=== PATIENT | female | born 1975 | race Caucasian/White ===

== ENCOUNTER 2020-12-29 14:57 | Emergency (ER) | payer MEDICAID ==
[2020-12-29] MEDS ORDERED: Sodium Chloride 0.9% 1,000 ML IV ONE (15:18)
[2020-12-29] MEDS ORDERED: Sodium Chloride 0.9% 10 ML Syringe FLUSH PRN (15:18)
[2020-12-29] MEDS ORDERED: Phenazopyridine 95 MG Tab PO ONE (15:19)
--- NOTE | 2020-12-29 15:22 | EDM.PDOC ---
ED HPI GENERAL MEDICAL PROBLEM - General Chief Complaint: Genitourinary Problem Stated Complaint: UNABLE TO URINATE Time Seen by Provider: 12/29/20 15:05 Source of Information: Reports: Patient, RN Notes Reviewed History Limitations: Reports: No Limitations - History of Present Illness INITIAL COMMENTS - FREE TEXT/NARRATIVE: Patient is a 45-year-old female who presents to the ER for the evaluation of a possible UTI. Patient notes she gets UTIs fairly frequently, the last one was roughly 2 months ago. She states she is having dysuria, and only dribbles a little bit when she has to go to the bathroom. Patient notes that she woke up early this morning, and that the road dorsal morning, she thinks she could be somewhat dehydrated as well however she was drinking Pedialyte all day in order to counteract the effects of being outside in the heat. She does feel a bit dizzy or lightheaded, feels like her mouth is dry. She is denying any fevers or chills, cough or shortness of breath, nausea/vomiting/diarrhea. Patient states it hurts quite a bit to urinate, so she became concerned and came to the ER. Groin Pain Score (Numeric/FACES): 8 - Related Data Allergies Allergy/AdvReac Type Severity Reaction Status Date / Time amoxicillin Allergy Severe Anaphylactic Verified 12/29/20 15:08 Shock Home Meds: Home Meds Cefdinir [Omnicef] 300 mg PO BID 7 Days #14 cap 12/29/20 [Rx] Dextroamphetamine/Amphetamine [Adderall 20 mg Tablet] 1 tab PO TID 12/29/20 [History] LORazepam [Ativan] 0.5 mg PO BID PRN 12/29/20 [History] Past Medical History Genitourinary History: Reports: UTI, Recurrent Psychiatric History: Reports: ADHD, Anxiety - Past Surgical History GI Surgical History: Reports: Appendectomy Female Surgical History: Reports: Hysterectomy Musculoskeletal Surgical History: Reports: Carpal Tunnel, Other (See Below) Other Musculoskeletal Surgeries/Procedures:: Foot Surgery Social & Family History - Tobacco Use Tobacco Use Status *Q: Never Tobacco User - Caffeine Use Caffeine Use: Reports: Soda - Recreational Drug Use Recreational Drug Use: No ED ROS GENERAL - Review of Systems Review Of Systems: Comprehensive ROS is negative, except as noted in HPI. ED EXAM, RENAL/ - Physical Exam Exam: See Below Exam Limited By: No Limitations General Appearance: Alert, WD/WN, No Apparent Distress Respiratory/Chest: No Respiratory Distress, Lungs Clear, Normal Breath Sounds, No Accessory Muscle Use, Chest Non-Tender Cardiovascular: Normal Peripheral Pulses, Regular Rate, Rhythm, No Edema GI/Abdominal: Normal Bowel Sounds, Soft, No Distention, No Mass, Tender (suprapubic tenderness) (Female) Exam: Deferred Extremities: Normal Inspection, Normal Capillary Refill Neurological: Alert, Oriented, Normal Cognition, No Motor/Sensory Deficits Psychiatric: Normal Affect, Normal Mood Skin Exam: Warm, Dry, Intact, Normal Color, No Rash Course - Vital Signs Last Recorded V/S: Last Vital Signs Temp 97.4 F 12/29/20 15:05 Pulse 87 12/29/20 15:05 Resp 16 12/29/20 15:05 BP 127/74 12/29/20 15:05 Pulse Ox 97 12/29/20 15:05 - Orders/Labs/Meds Orders: Active Orders 24 hr Category Date Time Status Peripheral IV Care [RC] . DIRECTED Care 12/29/20 15:18 Ordered Sodium Chloride 0.9% [Saline Flush] Med 12/29/20 15:18 Ordered 10 ml FLUSH ASDIRECTED PRN cefTRIAXone [Rocephin] 2 gm Med 12/29/20 15:54 Ordered Sodium Chloride 0.9% [Normal Saline] 100 ml IV ONETIME Peripheral IV Insertion Adult [OM.PC] Routine Oth 12/29/20 15:18 Ordered Medication Orders Ceftriaxone Sodium 2 gm/ (Sodium Chloride) 100 mls @ 200 mls/hr IV ONETIME ONE Stop: 12/29/20 16:23 Last Admin: 12/29/20 16:02 Dose: 200 mls/hr Documented by: KWAN Sodium Chloride (Sodium Chloride 0.9% 10 Ml Syringe) 10 ml FLUSH ASDIRECTED PRN PRN Reason: Keep Vein Open Last Admin: 12/29/20 15:33 Dose: 10 ml Documented by: WENDY Labs: Laboratory Tests 12/29/20 12/29/20 Range/Units 15:30 15:34 Sodium 139 (136-145) mEq/L Potassium 3.3 L (3.5-5.1) mEq/L Chloride 102 (98-107) mEq/L Carbon Dioxide 27 (21-32) mEq/L Anion Gap 13.3 (5-15) BUN 9 (7-18) mg/dL Creatinine 0.9 (0.55-1.02) mg/dL Est Cr Clr Drug Dosing 73.12 mL/min Estimated GFR (MDRD) > 60 (>60) mL/min BUN/Creatinine Ratio 10.0 L (14-18) Glucose 78 (70-99) mg/dL Calcium 8.3 L (8.5-10.1) mg/dL Total Bilirubin 0.4 (0.2-1.0) mg/dL AST 27 (15-37) U/L ALT 23 (14-59) U/L Alkaline Phosphatase 75 (46-116) U/L Total Protein 7.2 (6.4-8.2) g/dl Albumin 4.0 (3.4-5.0) g/dl Globulin 3.2 gm/dL Albumin/Globulin Ratio 1.3 (1-2) Urine Color Yellow (Yellow) Urine Appearance Cloudy H (Clear) Urine pH 5.5 (5.0-8.0) Ur Specific [place] > or = 1.030 (1.005-1.030) Urine Protein 2+ H (Negative) Urine Glucose (UA) Negative (Negative) Urine Ketones 1+ H (Negative) Urine Occult Blood 2+ H (Negative) Urine Nitrite Positive H (Negative) Urine Bilirubin Negative (Negative) Urine Urobilinogen 0.2 (0.2-1.0) Ur Leukocyte Esterase 2+ H (Negative) Urine RBC 40-50 H (0-5) /hpf Urine WBC 50-75 H (0-5) /hpf Ur Squamous Epith Cells 5-10 H (0-5) /hpf Urine Bacteria Moderate H (FEW) /hpf Urine Mucus Moderate H (FEW) /hpf Meds: Medications Generic Name Dose Route Start Last Admin Trade Name Freq PRN Reason Stop Dose Admin Ceftriaxone Sodium 2 gm/ 100 mls @ 200 mls/hr 12/29/20 15:54 12/29/20 16:02 Sodium Chloride IV 12/29/20 16:23 200 mls/hr ONETIME ONE Administration Sodium Chloride 10 ml 12/29/20 15:18 12/29/20 15:33 Sodium Chloride 0.9% 10 Ml Syringe FLUSH 10 ml ASDIRECTED PRN Administration Keep Vein Open Discontinued Medications Generic Name Dose Route Start Last Admin Trade Name Michael PRN Reason Stop Dose Admin Sodium Chloride 1,000 mls @ 999 mls/hr 12/29/20 15:18 12/29/20 15:33 Normal Saline IV 12/29/20 16:18 999 mls/hr ONETIME ONE Administration Phenazopyridine HCl 95 mg 12/29/20 15:19 12/29/20 15:33 Phenazopyridine 95 Mg Tab PO 12/29/20 15:20 95 mg ONETIME ONE Administration - Re-Assessments/Exams Free Text/Narrative Re-Assessment/Exam: 12/29/20 15:21 Patient presents to the ER for evaluation of her UTI-like symptoms, we will go ahead and get a urinalysis, patient states that she does feel fairly dry, IV will be started, will get a metabolic panel for examination, give her some IV fluids. Once we get the preliminary urine results, we will try to give the patient some Rocephin for suspected UTI. 12/29/20 15:54 Urine has resulted, preliminarily, positive nitrites and 2+ leukocyte Estrace, have ordered IV Rocephin for management, we will keep the patient on some Omnicef for outpatient management. Departure - Departure Time of Disposition: 15:59 Disposition: Home, Self-Care 01 Condition: Good Clinical Impression: UTI (urinary tract infection) Qualifiers: Urinary tract infection type: acute cystitis Hematuria presence: with hematuria Qualified Code(s): N30.01 - Acute cystitis with hematuria - Discharge Information *PRESCRIPTION DRUG MONITORING PROGRAM REVIEWED*: No *COPY OF PRESCRIPTION DRUG MONITORING REPORT IN PATIENT OLIVE: No Prescriptions: Cefdinir [Omnicef] 300 mg PO BID 7 Days #14 cap Instructions: Urinary Tract Infection, Adult, [id number] Forms: ED Department Discharge Additional Instructions: You have been evaluated in the ED for your urinary symptoms. Your urinalysis was consistent with an acute urinary tract infection. Your urine was sent for culture, and you will be notified if you should need a change in your antibiotic. This may take up to 48 hours to result. You may take AZO for urinary pain relief. This is available over the counter, and can be attained at any retail store like [employer] or any pharmacy. Please be aware that this medication will make your urine turn orange. You should only use this medication for a time period not longer than 72 hours. You have been given a prescription for Omnicef (cefdinir), 300 mg 1 tablet 2 times a day for 7 days. Please note that the antibiotics can take up to 48 hours to start working. This medication was electronically sent to the [facility] located near [facility]. Please increase your oral fluid intake and try to stay adequately hydrated. Please return to the ED if your symptoms change or worsen. Sepsis Event Note (ED) - Evaluation Sepsis Screening Result: No Definite Risk - Focused Exam Vital Signs: Vital Signs Temp Pulse Resp BP Pulse Ox 12/29/20 15:05 97.4 F 87 16 127/74 97 - My Orders Last 24 Hours: My Active Orders 12/29/20 15:18 Peripheral IV Care [RC] . DIRECTED Sodium Chloride 0.9% [Saline Flush] 10 ml FLUSH ASDIRECTED PRN Peripheral IV Insertion Adult [OM.PC] Routine 12/29/20 15:54 cefTRIAXone [Rocephin] 2 gm Sodium Chloride 0.9% [Normal Saline] 100 ml IV ONETIME - Assessment/Plan Last 24 Hours: My Active Orders 12/29/20 15:18 Peripheral IV Care [RC] . DIRECTED Sodium Chloride 0.9% [Saline Flush] 10 ml FLUSH ASDIRECTED PRN Peripheral IV Insertion Adult [OM.PC] Routine 12/29/20 15:54 cefTRIAXone [Rocephin] 2 gm Sodium Chloride 0.9% [Normal Saline] 100 ml IV ONETIME
[2020-12-29] MEDS ORDERED: cefTRIAXone 2 GM in Sodium Chloride 0.9% 100 ML IV ONE (15:54)
== END 2020-12-29 16:30 | disposition home or self-care (01) ==
LOC: JD.ED 14:57
DX: N30.01 Acute cystitis with hematuria (principal); Z88.0 Allergy status to penicillin
CPT/HCPCS: 36415; 80053; 81001; 87086; 96365; 99283; A9270; J0696; J7030; 87088; 87186

== ENCOUNTER 2020-12-31 09:25 | Observation (INO) | payer MEDICAID ==
[2020-12-31] MEDS ORDERED: Ondansetron 4 MG/2 ML SDV IVPUSH ONE (10:25)
[2020-12-31] MEDS: Sodium Chloride 0.9% 1,000 ML IV SCH ×2 (10:31→17:09)
[2020-12-31] MEDS ORDERED: HYDROmorphone 0.5 MG/0.5 ML Syringe IVPUSH ONE ×2 (10:54→12:29)
--- NOTE | 2020-12-31 10:57 | EDM.PDOC ---
ED HPI GENERAL MEDICAL PROBLEM - General Chief Complaint: Abdominal Pain Stated Complaint: UTI SX ARE GETTING WORSE Time Seen by Provider: 12/31/20 10:45 - History of Present Illness INITIAL COMMENTS - FREE TEXT/NARRATIVE: 45-year-old female presents the emergency room with worsening dysuria nausea and pain. Patient was seen here 2 days ago diagnosed with urinary tract infection. She was started on Omnicef 300 mg twice daily and she has been taking this faithfully but is continuing to get worse. The patient does not have a history of kidney stones however as of strong family history of kidney stones. Her pain is only on the left side. But she has quite a bit of dysuria when she has to void. She is not aware of any fevers or chills but generally just does not feel good. Abdominal Pain Score (Numeric/FACES): 8 - Related Data Allergies Allergy/AdvReac Type Severity Reaction Status Date / Time amoxicillin Allergy Severe Anaphylactic Verified 12/31/20 09:35 Shock Home Meds: Home Meds Cefdinir [Omnicef] 300 mg PO BID 7 Days #14 cap 12/29/20 [Rx] Dextroamphetamine/Amphetamine [Adderall 20 mg Tablet] 1 tab PO TID 12/29/20 [History] Fluconazole [Diflucan] 150 mg PO ASDIRECTED #1 tablet 12/29/20 [Rx] LORazepam [Ativan] 0.5 mg PO BID PRN 12/29/20 [History] Past Medical History Genitourinary History: Reports: UTI, Recurrent Psychiatric History: Reports: ADHD, Anxiety - Past Surgical History GI Surgical History: Reports: Appendectomy Female Surgical History: Reports: Hysterectomy Musculoskeletal Surgical History: Reports: Carpal Tunnel, Other (See Below) Other Musculoskeletal Surgeries/Procedures:: Foot Surgery Social & Family History - Tobacco Use Tobacco Use Status *Q: Never Tobacco User Second Hand Smoke Exposure: No - Caffeine Use Caffeine Use: Reports: Soda - Alcohol Use Days Per Week of Alcohol Use: 7 Number of Drinks Per Day: 1 Total Drinks Per Week: 7 - Recreational Drug Use Recreational Drug Use: Yes ED ROS GENERAL - Review of Systems Review Of Systems: See Below Constitutional: Denies: Fever, Chills Respiratory: Reports: No Symptoms Cardiovascular: Reports: No Symptoms GI/Abdominal: Reports: Abdominal Pain (All left-sided), Nausea. Denies: Constipation, Diarrhea : Reports: Dysuria, Flank Pain, Frequency, Other (She has had a hysterectomy i n the past) Neurological: Reports: No Symptoms ED EXAM, GENERAL - Physical Exam Exam: See Below Exam Limited By: No Limitations General Appearance: Alert, Moderate Distress (From discomfort) Head: Atraumatic, Normocephalic Neck: Normal Inspection, Supple, Non-Tender, Full Range of Motion. No: Lymphadenopathy (L), Lymphadenopathy (R) Respiratory/Chest: No Respiratory Distress, Lungs Clear, Normal Breath Sounds Cardiovascular: Regular Rate, Rhythm, No Edema, No Murmur GI/Abdominal: Normal Bowel Sounds, Soft, Other (He has left-sided discomfort not necessarily worsened with palpation she has 1 small area that is slightly worsened with palpation. This is all on the left side no right-sided discomfort.). No: Guarding, Rigid, Rebound Back Exam: Normal Inspection. No: CVA Tenderness (L), CVA Tenderness (R) Extremities: Normal Inspection, No Pedal Edema Neurological: Alert, Oriented, Normal Cognition Course - Vital Signs Last Recorded V/S: Last Vital Signs Temp 36.9 C 12/31/20 09:37 Pulse 77 12/31/20 09:37 Resp 19 12/31/20 09:37 BP 140/89 12/31/20 09:37 Pulse Ox 99 12/31/20 09:37 - Orders/Labs/Meds Orders: Active Orders 24 hr Category Date Time Status CULTURE URINE [MREF] Stat Lab 12/31/20 13:04 Ordered Levofloxacin/Dextrose 5%-Water [Levaquin in D5W 500 MG/ Med 12/31/20 13:02 Ordered 100 ML] 500 mg Premix Bag 1 bag IV ONETIME Sodium Chloride 0.9% [Normal Saline] 1,000 ml Med 12/31/20 10:30 Active IV ASDIRECTED Medication Orders Sodium Chloride (Normal Saline) 1,000 mls @ 150 mls/hr IV ASDIRECTED SHERIF Last Admin: 12/31/20 10:31 Dose: 150 mls/hr Documented by: MARLENI Levofloxacin/Dextrose 500 mg/ (Premix) 100 mls @ 100 mls/hr IV ONETIME ONE Stop: 12/31/20 14:01 Labs: Laboratory Tests 12/31/20 12/31/20 12/31/20 Range/Units 09:40 09:50 09:50 WBC 9.27 (3.98-10.04) K/mm3 RBC 3.96 L (3.98-5.22) M/mm3 Hgb 12.4 (11.2-15.7) gm/dl Hct 37.5 (34.1-44.9) % MCV 94.7 (79.4-94.8) fl MCH 31.3 (25.6-32.2) pg MCHC 33.1 (32.2-35.5) g/dl RDW Std Deviation 44.1 (36.4-46.3) fL Plt Count 238 (182-369) K/mm3 MPV 10.8 (9.4-12.3) fl Neutrophils % (Manual) 70 H (40-60) % Band Neutrophils % 2 (0-10) % Lymphocytes % (Manual) 17 L (20-40) % Atypical Lymphs % 0 % Monocytes % (Manual) 8 (2-10) % Eosinophils % (Manual) 2 (0.7-5.8) % Basophils % (Manual) 1 (0.1-1.2) Platelet Estimate Adequate Plt Morphology Comment Normal RBC Morph Comment Normal Sodium 141 (136-145) mEq/L Potassium 3.8 (3.5-5.1) mEq/L Chloride 106 (98-107) mEq/L Carbon Dioxide 26 (21-32) mEq/L Anion Gap 12.8 (5-15) BUN 9 (7-18) mg/dL Creatinine 0.8 (0.55-1.02) mg/dL Est Cr Clr Drug Dosing 81.80 mL/min Estimated GFR (MDRD) > 60 (>60) mL/min BUN/Creatinine Ratio 11.3 L (14-18) Glucose 103 H (70-99) mg/dL Calcium 8.1 L (8.5-10.1) mg/dL Total Bilirubin 0.4 (0.2-1.0) mg/dL AST 38 H (15-37) U/L ALT 28 (14-59) U/L Alkaline Phosphatase 78 (46-116) U/L C-Reactive Protein 0.5 (<1.0) mg/dL Total Protein 6.8 (6.4-8.2) g/dl Albumin 3.6 (3.4-5.0) g/dl Globulin 3.2 gm/dL Albumin/Globulin Ratio 1.1 (1-2) Lipase 86 (73-393) U/L Urine Color Dark yellow (Yellow) Urine Appearance Slt cloudy H (Clear) Urine pH 5.5 (5.0-8.0) Ur Specific [place] > or = 1.030 (1.005-1.030) Urine Protein 1+ H (Negative) Urine Glucose (UA) Negative (Negative) Urine Ketones Negative (Negative) Urine Occult Blood Negative (Negative) Urine Nitrite Negative (Negative) Urine Bilirubin 1+ H (Negative) Urine Urobilinogen 0.2 (0.2-1.0) Ur Leukocyte Esterase Negative (Negative) Urine RBC 0-5 (0-5) /hpf Urine WBC 20-30 H (0-5) /hpf Ur Epithelial Cells 5-10 H (0-5) /hpf Ur Renal Epithelial Cell 0-5 (0-5) /hpf Calcium Oxalate Crystal Moderate H (NONE) Urine Bacteria Moderate H (FEW) /hpf Urine Mucus Many H (FEW) /hpf Meds: Medications Generic Name Dose Route Start Last Admin Trade Name Michael PRN Reason Stop Dose Admin Sodium Chloride 1,000 mls @ 150 mls/hr 12/31/20 10:30 12/31/20 10:31 Normal Saline IV 150 mls/hr ASDIRECTED SHERIF Administration Levofloxacin/Dextrose 500 mg/ 100 mls @ 100 mls/hr 12/31/20 13:02 Premix IV 12/31/20 14:01 ONETIME ONE Discontinued Medications Generic Name Dose Route Start Last Admin Trade Name Danteq PRN Reason Stop Dose Admin Hydromorphone HCl 0.5 mg 12/31/20 10:54 12/31/20 10:58 Hydromorphone 0.5 Mg/0.5 Ml Syringe IVPUSH 12/31/20 10:55 0.5 mg ONETIME ONE Administration Hydromorphone HCl 0.5 mg 12/31/20 12:29 12/31/20 12:36 Hydromorphone 0.5 Mg/0.5 Ml Syringe IVPUSH 12/31/20 12:30 0.5 mg ONETIME ONE Administration Ondansetron HCl 4 mg 12/31/20 10:25 12/31/20 10:31 Ondansetron 4 Mg/2 Ml Sdv IVPUSH 06/25/21 10:26 4 mg ONETIME ONE Administration - Re-Assessments/Exams Free Text/Narrative Re-Assessment/Exam: 12/31/20 12:33 Discussed the patient's case with microbiology see if there is anything back on the urine culture and there is no reports back yet. 12/31/20 13:12 Patient should have had a more significant response on the Omnicef 300 mg twice daily if she was can have a good clinical response. Patient has failed outpatient treatment. CT shows a small nonobstructing stone within the mid right kidney no evidence to ureteral dilation or ureteral stone seen she has prominent stool throughout the colon. Case discussed with Dr. Stout, our hospitalist who will assume care. At this point I have ordered another urine culture on today's UA and will give the patient Levaquin 500 mg. Departure - Departure Time of Disposition: 13:13 Disposition: Refer to Observation Clinical Impression: Pyelonephritis of left kidney - Discharge Information Referrals: PCP,Not In Area [Primary Care Provider] - Forms: ED Department Discharge Sepsis Event Note (ED) - Evaluation Sepsis Screening Result: No Definite Risk - Focused Exam Vital Signs: Vital Signs Temp Pulse Resp BP Pulse Ox 12/31/20 09:37 36.9 C 77 19 140/89 99 - My Orders Last 24 Hours: My Active Orders 12/31/20 10:30 Sodium Chloride 0.9% [Normal Saline] 1,000 ml IV ASDIRECTED 12/31/20 13:02 Levofloxacin/Dextrose 5%-Water [Levaquin in D5W 500 MG/100 ML] 500 mg Premix Bag 1 bag IV ONETIME 12/31/20 13:04 CULTURE URINE [MREF] Stat - Assessment/Plan Last 24 Hours: My Active Orders 12/31/20 10:30 Sodium Chloride 0.9% [Normal Saline] 1,000 ml IV ASDIRECTED 12/31/20 13:02 Levofloxacin/Dextrose 5%-Water [Levaquin in D5W 500 MG/100 ML] 500 mg Premix Bag 1 bag IV ONETIME 12/31/20 13:04 CULTURE URINE [MREF] Stat
--- NOTE | 2020-12-31 11:34 | CT ---
CT abdomen and pelvis Technique: Multiple axial sections were obtained from above the dome of the diaphragm inferiorly through the pubic symphysis. Intravenous and oral contrast were not utilized. Reconstructed coronal and sagittal images were obtained. Comparison: No prior abdominal imaging is available. Findings: Small nonobstructing calculus is seen within the mid right kidney measuring less than 1 cm. Left kidney shows no abnormal calcifications. No ureteral dilatation or ureteral stone is seen. Visualized lung bases show nothing acute. Noncontrast appearance of the liver shows no focal abnormality. Spleen is normal in size. Gallbladder contains no calcified gallstones. Pancreas shows no discrete abnormality. Adrenal glands show no nodule. Abdominal aorta shows no aneurysm. No retroperitoneal adenopathy or mesenteric abnormalities are noted. No pelvic mass or adenopathy is seen. Calcifications are noted within the pelvis which are believed to represent phleboliths. Appendix is not definitely visualized. Prominent increased stool is seen within the colon. Bone window settings were reviewed which show mild scattered degenerative change with disc space narrowing. There is vacuum phenomena seen within the L4-5 apophyseal joints as well as within the L5-S1 disc. Impression: 1. Small nonobstructing stone within the mid right kidney. 2. No ureteral dilatation or ureteral stone is seen. 3. Prominent increased stool is seen throughout the colon. 4. Other incidental findings as noted above. Diagnostic code #2
[2020-12-31] MEDS ORDERED: Levofloxacin/Dextrose 5%-Water 500 MG in Premix Bag 1 BAG IV ONE (13:02)
--- NOTE | 2020-12-31 13:24 | PCM.HP.2 ---
<Jovanni Luo - Last Filed: 12/31/20 15:44> H&P History of Present Illness - General Date of Service: 12/31/20 Admit Problem/Dx: UTI Source of Information: Patient, Old Records, Provider, RN, RN Notes Reviewed - History of Present Illness Initial Comments - Free Text/Narative: This is a 45-year-old female who presents to ED on 12/31/2020 with concerns over a UTI that is not getting better. She was seen in our ED on 12/29/2020 and started on Omnicef. Urine cultures from that visit are thus far growing 50- 100,000 CFU's of gram-negative rods. On this visit patient reports that pain has been getting worse. She denies any history of renal stones and states the pain is only on her left side. She does note continuing dysuria when trying to void. Denies any fever or chills but states she just does not feel well. ED temp was 36.9 Celsius. Pulse 77. Respirations 19. Blood pressure 140/89. Pulse ox 99% on room air. Labs were obtained: There is no leukocytosis as WBC is 9.27. Hemoglobin is 12.4. Hematocrit 37.5. Platelets are 238,000. Neutrophils are elevated at 70%. There is 2% band neutrophils noted. Sodium is 141. Potassium 3.8. Chloride 106. Carbon dioxide 26. Anion gap is 12.8. BUN is 9. Creatinine 0.8. GFR greater than 60. Glucose is 103. Calcium 8.1. Total bilirubin 0.4. AST is 38, ALT 28, alkaline phosphatase 78. CRP 0.5. Albumin is 3.6. Lipase is 86. UA is obtained and is dark yellow and cloudy. It is concentrated with 1+ protein, 1+ bilirubin, negative leukocyte esterase, 20-30 WBCs, 5-10 urine epithelial cells, moderate calcium oxalate crystals and moderate urine bacteria. Many urine mucus is also noted. Abdominal pelvis CT scan is obtained showing small nonobstructing stone within the mid right kidney but no evidence of ureteral dilation or ureteral stone seen. She also has prominent stool throughout her colon. Repeat urine culture was ordered. She is given Dilaudid for pain and Zofran for nausea. She started on IV fluids and given a single dose of 500 mg Levaquin. She carries a history of recurrent UTIs, ADHD and anxiety. She was never smoker. She is not from around the area as she is here visiting [place]. She subsequently admitted to the medical floor observation status for management of her pyelonephritis and constipation. Abdominal Pain Score (Numeric/FACES): 8 - Related Data Allergies/Adverse Reactions: Allergies Allergy/AdvReac Type Severity Reaction Status Date / Time amoxicillin Allergy Severe Anaphylactic Verified 12/31/20 15:06 Shock Home Medications: Home Meds Cefdinir [Omnicef] 300 mg PO BID 7 Days #14 cap 12/29/20 [Rx] Dextroamphetamine/Amphetamine [Adderall 20 mg Tablet] 1 tab PO TID 12/29/20 [History] Fluconazole [Diflucan] 150 mg PO ASDIRECTED #1 tablet 12/29/20 [Rx] LORazepam [Ativan] 0.5 mg PO BID PRN 12/29/20 [History] Past Medical History Genitourinary History: Reports: UTI, Recurrent Psychiatric History: Reports: ADHD, Anxiety - Past Surgical History GI Surgical History: Reports: Appendectomy Female Surgical History: Reports: Hysterectomy Musculoskeletal Surgical History: Reports: Carpal Tunnel, Other (See Below) Other Musculoskeletal Surgeries/Procedures:: Foot Surgery Social & Family History - Tobacco Use Tobacco Use Status *Q: Never Tobacco User Second Hand Smoke Exposure: No - Caffeine Use Caffeine Use: Reports: Soda - Alcohol Use Days Per Week of Alcohol Use: 7 Number of Drinks Per Day: 1 Total Drinks Per Week: 7 - Recreational Drug Use Recreational Drug Use: Yes H&P Review of Systems - Review of Systems: Review Of Systems: See Below General: Reports: Malaise, Weakness, Fatigue. Denies: Fever, Chills HEENT: Reports: No Symptoms. Denies: Headaches, Sore Throat Pulmonary: Reports: No Symptoms. Denies: Shortness of Breath, Wheezing, Pleuritic Chest Pain, Cough, Sputum Cardiovascular: Reports: No Symptoms. Denies: Chest Pain, Palpitations, Dyspnea on Exertion, Edema Gastrointestinal: Reports: Abdominal Pain (generalized ), Constipation (chronic ), Nausea, Vomiting Genitourinary: Reports: Dysuria, Burning, Pain, Urgency, Retention, Flank Pain Musculoskeletal: Reports: No Symptoms Skin: Reports: No Symptoms. Denies: Cyanosis Psychiatric: Reports: No Symptoms. Denies: Confusion Neurological: Reports: No Symptoms Hematologic/Lymphatic: Reports: No Symptoms Immunologic: Reports: No Symptoms Exam - Exam Exam: See Below - Vital Signs Vital Signs: Last Vital Signs Temp 98.4 F 12/31/20 09:37 Pulse 77 12/31/20 09:37 Resp 19 12/31/20 09:37 BP 140/89 12/31/20 09:37 Pulse Ox 99 12/31/20 09:37 Weight: 58.967 kg - Exam Quality Assessment: DVT Prophylaxis. No: Supplemental Oxygen, Urinary Catheter General: Alert, Oriented, Cooperative, Mild Distress HEENT: Conjunctiva Clear, EACs Clear, EOMI, Mucosa Moist & [place], Posterior Pharynx Clear Neck: Supple, Trachea Midline Lungs: Clear to Auscultation, Normal Respiratory Effort Cardiovascular: Regular Rate, Regular Rhythm GI/Abdominal Exam: Normal Bowel Sounds, Soft, Tender (Female) Exam: Deferred Rectal (Female) Exam: Deferred Back Exam: Normal Inspection, Full Range of Motion. No: CVA Tenderness (L), CVA Tenderness (R) Extremities: Normal Inspection, Normal Range of Motion, Non-Tender, No Pedal Edema, Normal Capillary Refill Peripheral Pulses: 2+: Radial (L), Radial (R), Dorsalis Pedis (L), Dorsalis Pedis (R) Skin: Warm, Dry, Intact Neurological: Cranial Nerves Intact (Grossly ) - Patient Data Lab Results Last 24 hrs: Laboratory Results - last 24 hr 12/31/20 12/31/20 12/31/20 Range/Units 09:40 09:50 09:50 WBC 9.27 (3.98-10.04) K/mm3 RBC 3.96 L (3.98-5.22) M/mm3 Hgb 12.4 (11.2-15.7) gm/dl Hct 37.5 (34.1-44.9) % MCV 94.7 (79.4-94.8) fl MCH 31.3 (25.6-32.2) pg MCHC 33.1 (32.2-35.5) g/dl RDW Std Deviation 44.1 (36.4-46.3) fL Plt Count 238 (182-369) K/mm3 MPV 10.8 (9.4-12.3) fl Neutrophils % (Manual) 70 H (40-60) % Band Neutrophils % 2 (0-10) % Lymphocytes % (Manual) 17 L (20-40) % Atypical Lymphs % 0 % Monocytes % (Manual) 8 (2-10) % Eosinophils % (Manual) 2 (0.7-5.8) % Basophils % (Manual) 1 (0.1-1.2) Platelet Estimate Adequate Plt Morphology Comment Normal RBC Morph Comment Normal Sodium 141 (136-145) mEq/L Potassium 3.8 (3.5-5.1) mEq/L Chloride 106 (98-107) mEq/L Carbon Dioxide 26 (21-32) mEq/L Anion Gap 12.8 (5-15) BUN 9 (7-18) mg/dL Creatinine 0.8 (0.55-1.02) mg/dL Est Cr Clr Drug Dosing 81.80 mL/min Estimated GFR (MDRD) > 60 (>60) mL/min BUN/Creatinine Ratio 11.3 L (14-18) Glucose 103 H (70-99) mg/dL Calcium 8.1 L (8.5-10.1) mg/dL Total Bilirubin 0.4 (0.2-1.0) mg/dL AST 38 H (15-37) U/L ALT 28 (14-59) U/L Alkaline Phosphatase 78 (46-116) U/L C-Reactive Protein 0.5 (<1.0) mg/dL Total Protein 6.8 (6.4-8.2) g/dl Albumin 3.6 (3.4-5.0) g/dl Globulin 3.2 gm/dL Albumin/Globulin Ratio 1.1 (1-2) Lipase 86 (73-393) U/L Urine Color Dark yellow (Yellow) Urine Appearance Slt cloudy H (Clear) Urine pH 5.5 (5.0-8.0) Ur Specific [place] > or = 1.030 (1.005-1.030) Urine Protein 1+ H (Negative) Urine Glucose (UA) Negative (Negative) Urine Ketones Negative (Negative) Urine Occult Blood Negative (Negative) Urine Nitrite Negative (Negative) Urine Bilirubin 1+ H (Negative) Urine Urobilinogen 0.2 (0.2-1.0) Ur Leukocyte Esterase Negative (Negative) Urine RBC 0-5 (0-5) /hpf Urine WBC 20-30 H (0-5) /hpf Ur Epithelial Cells 5-10 H (0-5) /hpf Ur Renal Epithelial Cell 0-5 (0-5) /hpf Calcium Oxalate Crystal Moderate H (NONE) Urine Bacteria Moderate H (FEW) /hpf Urine Mucus Many H (FEW) /hpf Result Diagrams: 12/31/20 09:50 12/31/20 09:50 Sepsis Event Note - Evaluation Sepsis Screening Result: No Definite Risk - Focused Exam Vital Signs: Vital Signs Temp Pulse Resp BP Pulse Ox 12/31/20 09:37 98.4 F 77 19 140/89 99 - Problem List (1) Failure of outpatient treatment SNOMED Code(s): 893964783 ICD Code: Z78.9 - OTHER SPECIFIED HEALTH STATUS Status: Acute Priority: High Current Visit: Yes (2) UTI (urinary tract infection) SNOMED Code(s): 95090715 ICD Code: N39.0 - URINARY TRACT INFECTION, SITE NOT SPECIFIED Status: Acute Priority: High Current Visit: Yes Qualifiers: Urinary tract infection type: acute cystitis Hematuria presence: with hematuria Qualified Code(s): N30.01 - Acute cystitis with hematuria (3) Constipation SNOMED Code(s): 30125728 ICD Code: K59.00 - CONSTIPATION, UNSPECIFIED Status: Acute Priority: High Current Visit: Yes Qualifiers: Constipation type: unspecified constipation type Qualified Code(s): K59.00 - Constipation, unspecified (4) ADHD SNOMED Code(s): 209161012 ICD Code: F90.9 - ATTENTION-DEFICIT HYPERACTIVITY DISORDER, UNSPECIFIED TYPE Status: Chronic Priority: Low Current Visit: No Qualifiers: Attention deficit-hyperactivity disorder type: unspecified Qualified Code(s): F90.9 - Attention-deficit hyperactivity disorder, unspecified type (5) Anxiety SNOMED Code(s): 07797158 ICD Code: F41.9 - ANXIETY DISORDER, UNSPECIFIED Status: Chronic Priority: Low Current Visit: No (6) Pyelonephritis of left kidney SNOMED Code(s): 32146849 ICD Code: N12 - TUBULO-INTERSTITIAL NEPHRITIS, NOT SPCF ACUTE OR CHRONIC Status: Acute Priority: High Current Visit: Yes (7) Renal stone SNOMED Code(s): 41443704 ICD Code: N20.0 - CALCULUS OF KIDNEY Status: Acute Priority: Medium Current Visit: Yes Problem List Initiated/Reviewed/Updated: Yes Orders Last 24hrs: Active Orders 24 hr Category Date Time Status CULTURE URINE [MREF] Stat Lab 12/31/20 13:04 Ordered Levofloxacin/Dextrose 5%-Water [Levaquin in D5W 500 MG/ Med 12/31/20 13:02 Active 100 ML] 500 mg Premix Bag 1 bag IV ONETIME Sodium Chloride 0.9% [Normal Saline] 1,000 ml Med 12/31/20 10:30 Active IV ASDIRECTED Medication Orders Sodium Chloride (Normal Saline) 1,000 mls @ 150 mls/hr IV ASDIRECTED SHERIF Last Admin: 12/31/20 10:31 Dose: 150 mls/hr Documented by: MARLENI Levofloxacin/Dextrose 500 mg/ (Premix) 100 mls @ 100 mls/hr IV ONETIME ONE Stop: 12/31/20 14:01 Assessment/Plan Comment:: Assessment - day of admission 12/31/2020 * 45-year-old female who presents to ED on 12/31/2020 with concerns over a UTI that is not getting better * History of recurrent UTIs, ADHD and anxiety * Visiting area from [place] * Seen in our ED on 12/29/2020 and started on Omnicef. Urine cultures from that visit are thus far growing 50-100,000 CFU's of gram-negative rods. * Pain is only on her left side. * Denies any fever or chills but states she just does not feel well * Labs were obtained: * WBC is 9.27. * Hemoglobin is 12.4. * Hematocrit 37.5. * Platelets are 238,000. * Neutrophils are elevated at 70%. There is 2% band neutrophils noted. * Sodium is 141. * Potassium 3.8. * Chloride 106. * Carbon dioxide 26. * Anion gap is 12.8. * BUN is 9. Creatinine 0.8. GFR greater than 60. * Glucose is 103. * Calcium 8.1. * Total bilirubin 0.4. * AST is 38, ALT 28, alkaline phosphatase 78. * CRP 0.5. * Albumin is 3.6. * Lipase is 86. * UA obtained: dark yellow and cloudy, concentrated with 1+ protein, 1+ bilirubin, negative leukocyte esterase, 20-30 WBCs, 5-10 urine epithelial cells, moderate calcium oxalate crystals, moderate urine bacteria, many urine mucus is also noted. * Abdominal pelvis CT scan: small nonobstructing stone within the mid right kidney but no evidence of ureteral dilation or ureteral stone seen. She also has prominent stool throughout her colon. * Repeat urine culture was ordered. * She is given Dilaudid for pain and Zofran for nausea; started on IV fluids and given a single dose of 500 mg Levaquin. * Admitted to the medical floor observation status for management of her pyelonephritis and constipation. PLAN: UTI (urinary tract infection) Pyelonephritis of left kidney Failure of outpatient treatment * Continue 500mg daily Levaquin * Pain medications as ordered * IV fluids as ordered * Start Pyridium * Blood cultures if patient becomes febrile * Await urine cultures from 12/29/2020 and repeat cultures * Antiemetics PRN * Recheck daily labs Constipation * Scheduled Senna plus * PRN MiraLax * Ambulate Renal stone * <1cm and non-obstructing * PCP to monitor ADHD Anxiety * No acute concerns * Continue home PRN and scheduled meds Code status: Full code PCP: From out of town DVT prophylaxis: Social: Patient is from [place] in the area visiting [place] Disposition: Patient admitted to med surgical unit for management of U TI/pyelonephritis and constipation. Anticipated length of stay 1 to 2 days. - Mortality Measure Prognosis:: Good <Benjamin Stout - Last Filed: 12/31/20 16:45> H&P History of Present Illness - General Admit Problem/Dx: Admission Diagnosis/Problem Admission Diagnosis/Problem UTI (urinary tract infection), uncomplicated Exam - Vital Signs Vital Signs: Last Vital Signs Temp 36.7 C 12/31/20 14:34 Pulse 72 12/31/20 14:34 Resp 18 12/31/20 14:34 BP 110/74 12/31/20 14:34 Pulse Ox 97 12/31/20 14:34 - Patient Data Lab Results Last 24 hrs: Laboratory Results - last 24 hr 12/31/20 12/31/20 12/31/20 Range/Units 09:40 09:50 09:50 WBC 9.27 (3.98-10.04) K/mm3 RBC 3.96 L (3.98-5.22) M/mm3 Hgb 12.4 (11.2-15.7) gm/dl Hct 37.5 (34.1-44.9) % MCV 94.7 (79.4-94.8) fl MCH 31.3 (25.6-32.2) pg MCHC 33.1 (32.2-35.5) g/dl RDW Std Deviation 44.1 (36.4-46.3) fL Plt Count 238 (182-369) K/mm3 MPV 10.8 (9.4-12.3) fl Neutrophils % (Manual) 70 H (40-60) % Band Neutrophils % 2 (0-10) % Lymphocytes % (Manual) 17 L (20-40) % Atypical Lymphs % 0 % Monocytes % (Manual) 8 (2-10) % Eosinophils % (Manual) 2 (0.7-5.8) % Basophils % (Manual) 1 (0.1-1.2) Platelet Estimate Adequate Plt Morphology Comment Normal RBC Morph Comment Normal Sodium 141 (136-145) mEq/L Potassium 3.8 (3.5-5.1) mEq/L Chloride 106 (98-107) mEq/L Carbon Dioxide 26 (21-32) mEq/L Anion Gap 12.8 (5-15) BUN 9 (7-18) mg/dL Creatinine 0.8 (0.55-1.02) mg/dL Est Cr Clr Drug Dosing 81.80 mL/min Estimated GFR (MDRD) > 60 (>60) mL/min BUN/Creatinine Ratio 11.3 L (14-18) Glucose 103 H (70-99) mg/dL Calcium 8.1 L (8.5-10.1) mg/dL Total Bilirubin 0.4 (0.2-1.0) mg/dL AST 38 H (15-37) U/L ALT 28 (14-59) U/L Alkaline Phosphatase 78 (46-116) U/L C-Reactive Protein 0.5 (<1.0) mg/dL Total Protein 6.8 (6.4-8.2) g/dl Albumin 3.6 (3.4-5.0) g/dl Globulin 3.2 gm/dL Albumin/Globulin Ratio 1.1 (1-2) Lipase 86 (73-393) U/L Urine Color Dark yellow (Yellow) Urine Appearance Slt cloudy H (Clear) Urine pH 5.5 (5.0-8.0) Ur Specific [place] > or = 1.030 (1.005-1.030) Urine Protein 1+ H (Negative) Urine Glucose (UA) Negative (Negative) Urine Ketones Negative (Negative) Urine Occult Blood Negative (Negative) Urine Nitrite Negative (Negative) Urine Bilirubin 1+ H (Negative) Urine Urobilinogen 0.2 (0.2-1.0) Ur Leukocyte Esterase Negative (Negative) Urine RBC 0-5 (0-5) /hpf Urine WBC 20-30 H (0-5) /hpf Ur Epithelial Cells 5-10 H (0-5) /hpf Ur Renal Epithelial Cell 0-5 (0-5) /hpf Calcium Oxalate Crystal Moderate H (NONE) Urine Bacteria Moderate H (FEW) /hpf Urine Mucus Many H (FEW) /hpf SARS-CoV-2 RNA (LAZARO) (NEGATIVE) 12/31/20 Range/Units 13:19 WBC (3.98-10.04) K/mm3 RBC (3.98-5.22) M/mm3 Hgb (11.2-15.7) gm/dl Hct (34.1-44.9) % MCV (79.4-94.8) fl MCH (25.6-32.2) pg MCHC (32.2-35.5) g/dl RDW Std Deviation (36.4-46.3) fL Plt Count (182-369) K/mm3 MPV (9.4-12.3) fl Neutrophils % (Manual) (40-60) % Band Neutrophils % (0-10) % Lymphocytes % (Manual) (20-40) % Atypical Lymphs % % Monocytes % (Manual) (2-10) % Eosinophils % (Manual) (0.7-5.8) % Basophils % (Manual) (0.1-1.2) Platelet Estimate Plt Morphology Comment RBC Morph Comment Sodium (136-145) mEq/L Potassium (3.5-5.1) mEq/L Chloride (98-107) mEq/L Carbon Dioxide (21-32) mEq/L Anion Gap (5-15) BUN (7-18) mg/dL Creatinine (0.55-1.02) mg/dL Est Cr Clr Drug Dosing mL/min Estimated GFR (MDRD) (>60) mL/min BUN/Creatinine Ratio (14-18) Glucose (70-99) mg/dL Calcium (8.5-10.1) mg/dL Total Bilirubin (0.2-1.0) mg/dL AST (15-37) U/L ALT (14-59) U/L Alkaline Phosphatase (46-116) U/L C-Reactive Protein (<1.0) mg/dL Total Protein (6.4-8.2) g/dl Albumin (3.4-5.0) g/dl Globulin gm/dL Albumin/Globulin Ratio (1-2) Lipase (73-393) U/L Urine Color (Yellow) Urine Appearance (Clear) Urine pH (5.0-8.0) Ur Specific [place] (1.005-1.030) Urine Protein (Negative) Urine Glucose (UA) (Negative) Urine Ketones (Negative) Urine Occult Blood (Negative) Urine Nitrite (Negative) Urine Bilirubin (Negative) Urine Urobilinogen (0.2-1.0) Ur Leukocyte Esterase (Negative) Urine RBC (0-5) /hpf Urine WBC (0-5) /hpf Ur Epithelial Cells (0-5) /hpf Ur Renal Epithelial Cell (0-5) /hpf Calcium Oxalate Crystal (NONE) Urine Bacteria (FEW) /hpf Urine Mucus (FEW) /hpf SARS-CoV-2 RNA (LAZARO) Negative (NEGATIVE) Result Diagrams: 12/31/20 09:50 12/31/20 09:50 Sepsis Event Note - Focused Exam Vital Signs: Vital Signs Temp Temp Pulse Pulse Resp BP BP 12/31/20 14:34 36.7 C 72 18 110/74 12/31/20 09:37 36.9 C 77 19 140/89 Pulse Ox 12/31/20 14:34 97 12/31/20 09:37 99 Orders Last 24hrs: Active Orders 24 hr Category Date Time Status Patient Status [ADT] Routine ADT 12/31/20 13:46 Active Height and Weight [RC] 06 Care 12/31/20 14:49 Active Intake and Output [RC] 04,16 Care 12/31/20 14:49 Active Oxygen Therapy [RC] ASDIRECTED Care 12/31/20 14:49 Active Pulse Oximetry [RC] PRN Care 12/31/20 14:49 Active Up ad Yesica [RC] ASDIRECTED Care 12/31/20 14:49 Active Vital Signs [RC] 03,09,15,21 Care 12/31/20 14:49 Active Regular Diet [DIET] Diet 12/31/20 Dinner Active BASIC METABOLIC PANEL,BMP [CHEM] AM Lab 01/01/21 05:11 Ordered BASIC METABOLIC PANEL,BMP [CHEM] AM Lab 01/02/21 05:11 Ordered BASIC METABOLIC PANEL,BMP [CHEM] AM Lab 01/03/21 05:11 Ordered BASIC METABOLIC PANEL,BMP [CHEM] AM Lab 01/04/21 05:11 Ordered C-REACTIVE PROTEIN [CHEM] AM Lab 01/01/21 05:11 Ordered C-REACTIVE PROTEIN [CHEM] AM Lab 01/02/21 05:11 Ordered C-REACTIVE PROTEIN [CHEM] AM Lab 01/03/21 05:11 Ordered C-REACTIVE PROTEIN [CHEM] AM Lab 01/04/21 05:11 Ordered CBC WITH AUTO DIFF [HEME] AM Lab 01/01/21 05:11 Ordered CBC WITH AUTO DIFF [HEME] AM Lab 01/02/21 05:11 Ordered CBC WITH AUTO DIFF [HEME] AM Lab 01/03/21 05:11 Ordered CBC WITH AUTO DIFF [HEME] AM Lab 01/04/21 05:11 Ordered CULTURE URINE [MREF] Stat Lab 12/31/20 09:40 Received MAGNESIUM [CHEM] AM Lab 01/01/21 05:11 Ordered MAGNESIUM [CHEM] AM Lab 01/02/21 05:11 Ordered MAGNESIUM [CHEM] AM Lab 01/03/21 05:11 Ordered MAGNESIUM [CHEM] AM Lab 01/04/21 05:11 Ordered Acetaminophen [TylenoL] Med 12/31/20 14:49 Active 650 mg PO Q4H PRN Dextroamphetamine/Amphetamine [Adderall 20 mg Tablet] Med 12/31/20 15:00 Pending 1 tab PO TID Docusate Sodium/Sennosides [Senna Plus] Med 12/31/20 15:00 Active 1 tab PO BID Fluconazole [Diflucan] Med 12/31/20 15:00 Pending 150 mg PO ASDIRECTED HYDROmorphone [Dilaudid] Med 12/31/20 14:49 Active 0.5 mg IVPUSH Q2H PRN LORazepam [Ativan] Med 12/31/20 14:53 Pending 0.5 mg PO BID PRN Levofloxacin/Dextrose 5%-Water [Levaquin in D5W 500 MG/ Med 01/01/21 13:00 Active 100 ML] 500 mg Premix Bag 1 bag IV Q24H Ondansetron [Zofran] Med 12/31/20 14:49 Active 4 mg IV Q6H PRN Phenazopyridine [Urinary Pain Relief] Med 12/31/20 19:00 Active 95 mg PO TIDPC Sodium Chloride 0.9% [Normal Saline] 1,000 ml Med 12/31/20 10:30 Active IV ASDIRECTED oxyCODONE Med 12/31/20 14:49 Active 10 mg PO Q4H PRN polyethylene glycoL 3350 [MiraLAX] Med 12/31/20 14:44 Active 17 gm PO BID PRN Resuscitation Status Routine Resus Stat 12/31/20 14:49 Ordered Medication Orders Acetaminophen (Acetaminophen 325 Mg Tab) 650 mg PO Q4H PRN PRN Reason: Pain (Mild 1-3)/fever Fluconazole (Fluconazole 150 Mg Tab) 150 mg PO ASDIRECTED SHERIF Hydromorphone HCl (Hydromorphone 0.5 Mg/0.5 Ml Syringe) 0.5 mg IVPUSH Q2H PRN PRN Reason: Pain (severe 7-10) Last Admin: 12/31/20 15:52 Dose: 0.5 mg Documented by: MUITDAM Sodium Chloride (Normal Saline) 1,000 mls @ 150 mls/hr IV ASDIRECTED SHERIF Last Admin: 12/31/20 10:31 Dose: 150 mls/hr Documented by: MARLENI Levofloxacin/Dextrose 500 mg/ (Premix) 100 mls @ 100 mls/hr IV Q24H SHERIF Lorazepam (Lorazepam 0.5 Mg Tab) 0.5 mg PO BID PRN PRN Reason: Anxiety Non-Formulary Medication (Dextroamphetamine/Amphetamine [Adderall 20 Mg Tablet]) 1 tab PO TID SHERIF Ondansetron HCl (Ondansetron 4 Mg/2 Ml Sdv) 4 mg IV Q6H PRN PRN Reason: Nausea/Vomiting Last Admin: 12/31/20 15:43 Dose: 4 mg Documented by: MUITDAM Oxycodone HCl (Oxycodone 5 Mg Tab) 10 mg PO Q4H PRN PRN Reason: Pain (moderate 4-6) Phenazopyridine HCl (Phenazopyridine 95 Mg Tab) 95 mg PO TIDPC SHERIF Polyethylene Glycol (Polyethylene Glycol 3350 Powder 17 Gm Packet) 17 gm PO BID PRN PRN Reason: Constipation Last Admin: 12/31/20 15:00 Dose: 17 gm Documented by: GURVINDER Senna/Docusate Sodium (Docusate Sodium/Sennosides 50-8.6 Mg Tab) 1 tab PO BID SHERIF Last Admin: 12/31/20 16:00 Dose: Not Given Documented by: GURVINDER Assessment/Plan Comment:: I have seen and examined the patient independently of Jovanni Luo PA-C, and have reviewed the case with him. I have reviewed and agree with the plan and care as outlined by him. Please see orders.
[2020-12-31] MEDS ORDERED: Acetaminophen 325 MG Tab PO PRN (14:49)
[2020-12-31] MEDS ORDERED: LORazepam 0.5 MG Tab PO PRN (14:53)
[2020-12-31] MEDS ORDERED: Fluconazole 150 MG Tab PO SCH (15:00)
[2020-12-31] MEDS: Polyethylene Glycol 3350 Powder 17 GM Packet PO PRN (15:00)
[2020-12-31] MEDS: Ondansetron 4 MG/2 ML SDV IV PRN (15:43)
[2020-12-31] MEDS: HYDROmorphone 0.5 MG/0.5 ML Syringe IVPUSH PRN (15:52)
[2020-12-31] MEDS ORDERED: Bisacodyl 10 MG Supp RECTAL ONE (16:15)
[2020-12-31] MEDS ORDERED: HYDROmorphone 1 MG/ML Syringe IVPUSH ONE (16:15)
[2020-12-31] MEDS: Phenazopyridine 95 MG Tab PO SCH (18:32)
[2020-12-31] MEDS: oxyCODONE 5 MG Tab PO PRN (20:48)
[2021-01-01] MEDS: Sodium Chloride 0.9% 1,000 ML IV SCH ×2 (00:09→06:39)
[2021-01-01] MEDS: oxyCODONE 5 MG Tab PO PRN ×2 (04:48→18:23)
[2021-01-01] MEDS: HYDROmorphone 0.5 MG/0.5 ML Syringe IVPUSH PRN (06:42)
[2021-01-01] MEDS: Ondansetron 4 MG/2 ML SDV IV PRN ×2 (07:50→17:36)
--- NOTE | 2021-01-01 08:09 | PCM.PN ---
- General Info Date of Service: 01/01/21 Admission Dx/Problem (Free Text): Admission Diagnosis/Problem Admission Diagnosis/Problem UTI (urinary tract infection), uncomplicated Subjective Update: The patient is a 45-year-old lady who was admitted to acute hospitalization yesterday secondary to urinary tract infection with failed outpatient treatment. The patient had a CT scan which showed a small nonobstructing stone within the mid right kidney. No ureteral dilation. The patient says today that her pain is well controlled. She feels better today. The patient says that she feels like she could stay another day. She also has had some vomiting associated with diet. No fever or chills. Functional Status: Reports: Pain Controlled. Denies: Tolerating Diet - Review of Systems General: Reports: Weakness HEENT: Reports: No Symptoms Pulmonary: Reports: No Symptoms Cardiovascular: Reports: No Symptoms Gastrointestinal: Reports: Constipation, Vomiting Genitourinary: Reports: Flank Pain Musculoskeletal: Reports: No Symptoms Skin: Reports: No Symptoms Neurological: Reports: No Symptoms Psychiatric: Reports: No Symptoms - Patient Data Vitals - Most Recent: Last Vital Signs Temp 36.6 C 01/01/21 04:51 Pulse 59 L 01/01/21 04:51 Resp 16 01/01/21 04:51 BP 121/56 L 01/01/21 04:51 Pulse Ox 96 01/01/21 04:51 Weight - Most Recent: 62.46 kg I&O - Last 24 Hours: Intake & Output 12/31/20 01/01/21 01/01/21 22:59 06:59 14:59 Intake Total 353 2614 Output Total 1600 650 Balance -1247 1964 Lab Results Last 24 Hours: Laboratory Results - last 24 hr 12/31/20 12/31/20 12/31/20 Range/Units 09:40 09:50 09:50 WBC 9.27 (3.98-10.04) K/mm3 RBC 3.96 L (3.98-5.22) M/mm3 Hgb 12.4 (11.2-15.7) gm/dl Hct 37.5 (34.1-44.9) % MCV 94.7 (79.4-94.8) fl MCH 31.3 (25.6-32.2) pg MCHC 33.1 (32.2-35.5) g/dl RDW Std Deviation 44.1 (36.4-46.3) fL Plt Count 238 (182-369) K/mm3 MPV 10.8 (9.4-12.3) fl Neut % (Auto) (34.0-71.1) % Lymph % (Auto) (19.3-51.7) % [place] % (Auto) (4.7-12.5) % Eos % (Auto) (0.7-5.8) Baso % (Auto) (0.1-1.2) % Neut # (Auto) (1.56-6.13) K/mm3 Lymph # (Auto) (1.18-3.74) K/mm3 [place] # (Auto) (0.24-0.36) K/mm3 Eos # (Auto) (0.04-0.36) K/mm3 Baso # (Auto) (0.01-0.08) K/mm3 Neutrophils % (Manual) 70 H (40-60) % Band Neutrophils % 2 (0-10) % Lymphocytes % (Manual) 17 L (20-40) % Atypical Lymphs % 0 % Monocytes % (Manual) 8 (2-10) % Eosinophils % (Manual) 2 (0.7-5.8) % Basophils % (Manual) 1 (0.1-1.2) Platelet Estimate Adequate Plt Morphology Comment Normal RBC Morph Comment Normal Sodium 141 (136-145) mEq/L Potassium 3.8 (3.5-5.1) mEq/L Chloride 106 (98-107) mEq/L Carbon Dioxide 26 (21-32) mEq/L Anion Gap 12.8 (5-15) BUN 9 (7-18) mg/dL Creatinine 0.8 (0.55-1.02) mg/dL Est Cr Clr Drug Dosing 81.80 mL/min Estimated GFR (MDRD) > 60 (>60) mL/min BUN/Creatinine Ratio 11.3 L (14-18) Glucose 103 H (70-99) mg/dL Calcium 8.1 L (8.5-10.1) mg/dL Magnesium (1.8-2.4) mg/dL Total Bilirubin 0.4 (0.2-1.0) mg/dL AST 38 H (15-37) U/L ALT 28 (14-59) U/L Alkaline Phosphatase 78 (46-116) U/L C-Reactive Protein 0.5 (<1.0) mg/dL Total Protein 6.8 (6.4-8.2) g/dl Albumin 3.6 (3.4-5.0) g/dl Globulin 3.2 gm/dL Albumin/Globulin Ratio 1.1 (1-2) Lipase 86 (73-393) U/L Urine Color Dark yellow (Yellow) Urine Appearance Slt cloudy H (Clear) Urine pH 5.5 (5.0-8.0) Ur Specific [place] > or = 1.030 (1.005-1.030) Urine Protein 1+ H (Negative) Urine Glucose (UA) Negative (Negative) Urine Ketones Negative (Negative) Urine Occult Blood Negative (Negative) Urine Nitrite Negative (Negative) Urine Bilirubin 1+ H (Negative) Urine Urobilinogen 0.2 (0.2-1.0) Ur Leukocyte Esterase Negative (Negative) Urine RBC 0-5 (0-5) /hpf Urine WBC 20-30 H (0-5) /hpf Ur Epithelial Cells 5-10 H (0-5) /hpf Ur Renal Epithelial Cell 0-5 (0-5) /hpf Calcium Oxalate Crystal Moderate H (NONE) Urine Bacteria Moderate H (FEW) /hpf Urine Mucus Many H (FEW) /hpf SARS-CoV-2 RNA (LAZARO) (NEGATIVE) 12/31/20 01/01/21 01/01/21 Range/Units 13:19 05:23 05:23 WBC 7.82 (3.98-10.04) K/mm3 RBC 3.37 L (3.98-5.22) M/mm3 Hgb 10.6 L D (11.2-15.7) gm/dl Hct 32.4 L (34.1-44.9) % MCV 96.1 H (79.4-94.8) fl MCH 31.5 (25.6-32.2) pg MCHC 32.7 (32.2-35.5) g/dl RDW Std Deviation 44.8 (36.4-46.3) fL Plt Count 174 L (182-369) K/mm3 MPV 11.2 (9.4-12.3) fl Neut % (Auto) 69.8 (34.0-71.1) % Lymph % (Auto) 18.4 L (19.3-51.7) % [place] % (Auto) 8.8 (4.7-12.5) % Eos % (Auto) 2.9 (0.7-5.8) Baso % (Auto) 0.1 (0.1-1.2) % Neut # (Auto) 5.45 (1.56-6.13) K/mm3 Lymph # (Auto) 1.44 (1.18-3.74) K/mm3 [place] # (Auto) 0.69 H (0.24-0.36) K/mm3 Eos # (Auto) 0.23 (0.04-0.36) K/mm3 Baso # (Auto) 0.01 (0.01-0.08) K/mm3 Neutrophils % (Manual) (40-60) % Band Neutrophils % (0-10) % Lymphocytes % (Manual) (20-40) % Atypical Lymphs % % Monocytes % (Manual) (2-10) % Eosinophils % (Manual) (0.7-5.8) % Basophils % (Manual) (0.1-1.2) Platelet Estimate Plt Morphology Comment RBC Morph Comment Sodium 143 (136-145) mEq/L Potassium 3.8 (3.5-5.1) mEq/L Chloride 109 H (98-107) mEq/L Carbon Dioxide 25 (21-32) mEq/L Anion Gap 12.8 (5-15) BUN 8 (7-18) mg/dL Creatinine 0.6 (0.55-1.02) mg/dL Est Cr Clr Drug Dosing 109.68 mL/min Estimated GFR (MDRD) > 60 (>60) mL/min BUN/Creatinine Ratio 13.3 L (14-18) Glucose 90 (70-99) mg/dL Calcium 7.6 L (8.5-10.1) mg/dL Magnesium 1.8 (1.8-2.4) mg/dL Total Bilirubin (0.2-1.0) mg/dL AST (15-37) U/L ALT (14-59) U/L Alkaline Phosphatase (46-116) U/L C-Reactive Protein 2.3 H* (<1.0) mg/dL Total Protein (6.4-8.2) g/dl Albumin (3.4-5.0) g/dl Globulin gm/dL Albumin/Globulin Ratio (1-2) Lipase (73-393) U/L Urine Color (Yellow) Urine Appearance (Clear) Urine pH (5.0-8.0) Ur Specific [place] (1.005-1.030) Urine Protein (Negative) Urine Glucose (UA) (Negative) Urine Ketones (Negative) Urine Occult Blood (Negative) Urine Nitrite (Negative) Urine Bilirubin (Negative) Urine Urobilinogen (0.2-1.0) Ur Leukocyte Esterase (Negative) Urine RBC (0-5) /hpf Urine WBC (0-5) /hpf Ur Epithelial Cells (0-5) /hpf Ur Renal Epithelial Cell (0-5) /hpf Calcium Oxalate Crystal (NONE) Urine Bacteria (FEW) /hpf Urine Mucus (FEW) /hpf SARS-CoV-2 RNA (LAZARO) Negative (NEGATIVE) Med Orders - Current: Current Medications Acetaminophen (Acetaminophen 325 Mg Tab) 650 mg PO Q4H PRN PRN Reason: Pain (Mild 1-3)/fever Fluconazole (Fluconazole 150 Mg Tab) 150 mg PO ASDIRECTED SHERIF Hydromorphone HCl (Hydromorphone 0.5 Mg/0.5 Ml Syringe) 0.5 mg IVPUSH Q2H PRN PRN Reason: Pain (severe 7-10) Last Admin: 01/01/21 06:42 Dose: 0.5 mg Documented by: Levofloxacin/Dextrose 500 mg/ (Premix) 100 mls @ 100 mls/hr IV Q24H [facility] Lorazepam (Lorazepam 0.5 Mg Tab) 0.5 mg PO BID PRN PRN Reason: Anxiety Non-Formulary Medication (Dextroamphetamine/Amphetamine [Adderall 20 Mg Tablet]) 1 tab PO TID SHERIF Ondansetron HCl (Ondansetron 4 Mg/2 Ml Sdv) 4 mg IV Q6H PRN PRN Reason: Nausea/Vomiting Last Admin: 01/01/21 07:50 Dose: 4 mg Documented by: Oxycodone HCl (Oxycodone 5 Mg Tab) 10 mg PO Q4H PRN PRN Reason: Pain (moderate 4-6) Last Admin: 01/01/21 04:48 Dose: 10 mg Documented by: Phenazopyridine HCl (Phenazopyridine 95 Mg Tab) 95 mg PO TIDPC [facility] Last Admin: 12/31/20 18:32 Dose: 95 mg Documented by: Polyethylene Glycol (Polyethylene Glycol 3350 Powder 17 Gm Packet) 17 gm PO BID PRN PRN Reason: Constipation Last Admin: 12/31/20 15:00 Dose: 17 gm Documented by: Senna/Docusate Sodium (Docusate Sodium/Sennosides 50-8.6 Mg Tab) 1 tab PO BID [facility] Last Admin: 12/31/20 20:29 Dose: 1 tab Documented by: Discontinued Medications Bisacodyl (Bisacodyl 10 Mg Supp) 10 mg RECTAL ONETIME ONE Stop: 12/31/20 16:16 Last Admin: 12/31/20 16:09 Dose: 10 mg Documented by: Hydromorphone HCl (Hydromorphone 0.5 Mg/0.5 Ml Syringe) 0.5 mg IVPUSH ONETIME ONE Stop: 12/31/20 10:55 Last Admin: 12/31/20 10:58 Dose: 0.5 mg Documented by: Hydromorphone HCl (Hydromorphone 0.5 Mg/0.5 Ml Syringe) 0.5 mg IVPUSH ONETIME ONE Stop: 12/31/20 12:30 Last Admin: 12/31/20 12:36 Dose: 0.5 mg Documented by: Hydromorphone HCl (Hydromorphone 1 Mg/Ml Syringe) 1 mg IVPUSH ONETIME ONE Stop: 12/31/20 16:16 Last Admin: 12/31/20 16:09 Dose: 1 mg Documented by: Sodium Chloride (Normal Saline) 1,000 mls @ 150 mls/hr IV ASDIRECTED [facility] Last Admin: 01/01/21 06:39 Dose: 150 mls/hr Documented by: Levofloxacin/Dextrose 500 mg/ (Premix) 100 mls @ 100 mls/hr IV ONETIME ONE Stop: 12/31/20 14:01 Last Admin: 12/31/20 13:17 Dose: 100 mls/hr Documented by: Ondansetron HCl (Ondansetron 4 Mg/2 Ml Sdv) 4 mg IVPUSH ONETIME ONE Stop: 12/31/20 10:26 Last Admin: 12/31/20 10:31 Dose: 4 mg Documented by: - Exam Quality Assessment: DVT Prophylaxis. No: Supplemental Oxygen General: Alert, Oriented, Cooperative, No Acute Distress HEENT: Pupils Equal, Pupils Reactive, EOMI, Mucous Membr. Moist/[place] Neck: Supple, Trachea Midline Lungs: Clear to Auscultation, Normal Respiratory Effort Cardiovascular: Regular Rate, Regular Rhythm GI/Abdominal Exam: Normal Bowel Sounds, Soft, Non-Tender, No Distention (Female) Exam: Deferred Back Exam: Normal Inspection, Full Range of Motion Extremities: Normal Inspection, No Pedal Edema Skin: Warm, Dry, Intact Neurological: No New Focal Deficit Psy/Mental Status: Alert, Normal Affect, Normal Mood - Patient Data Lab Results Last 24 hrs: Laboratory Results - last 24 hr 12/31/20 12/31/20 12/31/20 Range/Units 09:40 09:50 09:50 WBC 9.27 (3.98-10.04) K/mm3 RBC 3.96 L (3.98-5.22) M/mm3 Hgb 12.4 (11.2-15.7) gm/dl Hct 37.5 (34.1-44.9) % MCV 94.7 (79.4-94.8) fl MCH 31.3 (25.6-32.2) pg MCHC 33.1 (32.2-35.5) g/dl RDW Std Deviation 44.1 (36.4-46.3) fL Plt Count 238 (182-369) K/mm3 MPV 10.8 (9.4-12.3) fl Neut % (Auto) (34.0-71.1) % Lymph % (Auto) (19.3-51.7) % [place] % (Auto) (4.7-12.5) % Eos % (Auto) (0.7-5.8) Baso % (Auto) (0.1-1.2) % Neut # (Auto) (1.56-6.13) K/mm3 Lymph # (Auto) (1.18-3.74) K/mm3 [place] # (Auto) (0.24-0.36) K/mm3 Eos # (Auto) (0.04-0.36) K/mm3 Baso # (Auto) (0.01-0.08) K/mm3 Neutrophils % (Manual) 70 H (40-60) % Band Neutrophils % 2 (0-10) % Lymphocytes % (Manual) 17 L (20-40) % Atypical Lymphs % 0 % Monocytes % (Manual) 8 (2-10) % Eosinophils % (Manual) 2 (0.7-5.8) % Basophils % (Manual) 1 (0.1-1.2) Platelet Estimate Adequate Plt Morphology Comment Normal RBC Morph Comment Normal Sodium 141 (136-145) mEq/L Potassium 3.8 (3.5-5.1) mEq/L Chloride 106 (98-107) mEq/L Carbon Dioxide 26 (21-32) mEq/L Anion Gap 12.8 (5-15) BUN 9 (7-18) mg/dL Creatinine 0.8 (0.55-1.02) mg/dL Est Cr Clr Drug Dosing 81.80 mL/min Estimated GFR (MDRD) > 60 (>60) mL/min BUN/Creatinine Ratio 11.3 L (14-18) Glucose 103 H (70-99) mg/dL Calcium 8.1 L (8.5-10.1) mg/dL Magnesium (1.8-2.4) mg/dL Total Bilirubin 0.4 (0.2-1.0) mg/dL AST 38 H (15-37) U/L ALT 28 (14-59) U/L Alkaline Phosphatase 78 (46-116) U/L C-Reactive Protein 0.5 (<1.0) mg/dL Total Protein 6.8 (6.4-8.2) g/dl Albumin 3.6 (3.4-5.0) g/dl Globulin 3.2 gm/dL Albumin/Globulin Ratio 1.1 (1-2) Lipase 86 (73-393) U/L Urine Color Dark yellow (Yellow) Urine Appearance Slt cloudy H (Clear) Urine pH 5.5 (5.0-8.0) Ur Specific [place] > or = 1.030 (1.005-1.030) Urine Protein 1+ H (Negative) Urine Glucose (UA) Negative (Negative) Urine Ketones Negative (Negative) Urine Occult Blood Negative (Negative) Urine Nitrite Negative (Negative) Urine Bilirubin 1+ H (Negative) Urine Urobilinogen 0.2 (0.2-1.0) Ur Leukocyte Esterase Negative (Negative) Urine RBC 0-5 (0-5) /hpf Urine WBC 20-30 H (0-5) /hpf Ur Epithelial Cells 5-10 H (0-5) /hpf Ur Renal Epithelial Cell 0-5 (0-5) /hpf Calcium Oxalate Crystal Moderate H (NONE) Urine Bacteria Moderate H (FEW) /hpf Urine Mucus Many H (FEW) /hpf SARS-CoV-2 RNA (LAZARO) (NEGATIVE) 12/31/20 01/01/21 01/01/21 Range/Units 13:19 05:23 05:23 WBC 7.82 (3.98-10.04) K/mm3 RBC 3.37 L (3.98-5.22) M/mm3 Hgb 10.6 L D (11.2-15.7) gm/dl Hct 32.4 L (34.1-44.9) % MCV 96.1 H (79.4-94.8) fl MCH 31.5 (25.6-32.2) pg MCHC 32.7 (32.2-35.5) g/dl RDW Std Deviation 44.8 (36.4-46.3) fL Plt Count 174 L (182-369) K/mm3 MPV 11.2 (9.4-12.3) fl Neut % (Auto) 69.8 (34.0-71.1) % Lymph % (Auto) 18.4 L (19.3-51.7) % [place] % (Auto) 8.8 (4.7-12.5) % Eos % (Auto) 2.9 (0.7-5.8) Baso % (Auto) 0.1 (0.1-1.2) % Neut # (Auto) 5.45 (1.56-6.13) K/mm3 Lymph # (Auto) 1.44 (1.18-3.74) K/mm3 [place] # (Auto) 0.69 H (0.24-0.36) K/mm3 Eos # (Auto) 0.23 (0.04-0.36) K/mm3 Baso # (Auto) 0.01 (0.01-0.08) K/mm3 Neutrophils % (Manual) (40-60) % Band Neutrophils % (0-10) % Lymphocytes % (Manual) (20-40) % Atypical Lymphs % % Monocytes % (Manual) (2-10) % Eosinophils % (Manual) (0.7-5.8) % Basophils % (Manual) (0.1-1.2) Platelet Estimate Plt Morphology Comment RBC Morph Comment Sodium 143 (136-145) mEq/L Potassium 3.8 (3.5-5.1) mEq/L Chloride 109 H (98-107) mEq/L Carbon Dioxide 25 (21-32) mEq/L Anion Gap 12.8 (5-15) BUN 8 (7-18) mg/dL Creatinine 0.6 (0.55-1.02) mg/dL Est Cr Clr Drug Dosing 109.68 mL/min Estimated GFR (MDRD) > 60 (>60) mL/min BUN/Creatinine Ratio 13.3 L (14-18) Glucose 90 (70-99) mg/dL Calcium 7.6 L (8.5-10.1) mg/dL Magnesium 1.8 (1.8-2.4) mg/dL Total Bilirubin (0.2-1.0) mg/dL AST (15-37) U/L ALT (14-59) U/L Alkaline Phosphatase (46-116) U/L C-Reactive Protein 2.3 H* (<1.0) mg/dL Total Protein (6.4-8.2) g/dl Albumin (3.4-5.0) g/dl Globulin gm/dL Albumin/Globulin Ratio (1-2) Lipase (73-393) U/L Urine Color (Yellow) Urine Appearance (Clear) Urine pH (5.0-8.0) Ur Specific [place] (1.005-1.030) Urine Protein (Negative) Urine Glucose (UA) (Negative) Urine Ketones (Negative) Urine Occult Blood (Negative) Urine Nitrite (Negative) Urine Bilirubin (Negative) Urine Urobilinogen (0.2-1.0) Ur Leukocyte Esterase (Negative) Urine RBC (0-5) /hpf Urine WBC (0-5) /hpf Ur Epithelial Cells (0-5) /hpf Ur Renal Epithelial Cell (0-5) /hpf Calcium Oxalate Crystal (NONE) Urine Bacteria (FEW) /hpf Urine Mucus (FEW) /hpf SARS-CoV-2 RNA (LAZARO) Negative (NEGATIVE) Result Diagrams: 01/01/21 05:23 01/01/21 05:23 Sepsis Event Note - Evaluation Sepsis Screening Result: No Definite Risk - Focused Exam Vital Signs: Vital Signs Temp Pulse Resp BP Pulse Ox 01/01/21 04:51 36.6 C 59 L 16 121/56 L 96 01/01/21 00:09 36.8 C 73 16 109/60 95 12/31/20 20:29 36.8 C 69 18 112/54 L 96 - Problem List & Annotations (1) UTI (urinary tract infection) SNOMED Code(s): 88147148 Code(s): N39.0 - URINARY TRACT INFECTION, SITE NOT SPECIFIED Status: Acute Priority: High Current Visit: Yes Qualifiers: Urinary tract infection type: acute cystitis Hematuria presence: with hematuria Qualified Code(s): N30.01 - Acute cystitis with hematuria (2) Pyelonephritis of left kidney SNOMED Code(s): 56944931 Code(s): N12 - TUBULO-INTERSTITIAL NEPHRITIS, NOT SPCF ACUTE OR CHRONIC Status: Acute Priority: High Current Visit: Yes (3) Constipation SNOMED Code(s): 04512345 Code(s): K59.00 - CONSTIPATION, UNSPECIFIED Status: Chronic Priority: H igh Current Visit: Yes Qualifiers: Constipation type: unspecified constipation type Qualified Code(s): K59.00 - Constipation, unspecified (4) Renal stone SNOMED Code(s): 26509059 Code(s): N20.0 - CALCULUS OF KIDNEY Status: Acute Priority: Medium Current Visit: Yes Annotation/Comment:: Nonobstructing, located in mid kidney, incidental finding - Problem List Review Problem List Initiated/Reviewed/Updated: Yes - My Orders Last 24 Hours: My Active Orders 12/31/20 14:44 polyethylene glycoL 3350 [MiraLAX] 17 gm PO BID PRN - Plan Plan:: 01/01/2021 The patient is a 45-year-old lady who is doing better today. She is not able to tolerate diet therefore will be retained 1 extra day. Continue Levaquin. The patient will be transitioned to p.o. ciprofloxacin. Continue Colace for constipation. Patient has been encouraged to ambulate. She will be on regular diet as tolerated. The patient should be appropriate for discharge tomorrow.
[2021-01-01] MEDS: Phenazopyridine 95 MG Tab PO SCH ×3 (08:11→18:23)
[2021-01-01] MEDS: Levofloxacin/Dextrose 5%-Water 500 MG in Premix Bag 1 BAG IV SCH (12:02)
[2021-01-01] MEDS: Polyethylene Glycol 3350 Powder 17 GM Packet PO PRN (16:03)
[2021-01-01] MEDS ORDERED: HYDROmorphone 1 MG/ML Syringe IVPUSH PRN (17:28)
[2021-01-01] MEDS ORDERED: LORazepam 1 MG Tab PO PRN (18:32)
[2021-01-02] MEDS: oxyCODONE 5 MG Tab PO PRN ×2 (01:23→05:25)
[2021-01-02] MEDS: Polyethylene Glycol 3350 Powder 17 GM Packet PO PRN (05:25)
--- NOTE | 2021-01-02 08:11 | PCM.DCSUM1 ---
Discharge Summary - Hospital Course HPI Initial Comments: The patient was admitted for IV antibiotic treatment of urinary tract infection that had failed outpatient. Diagnosis: Stroke: No - Discharge Data Discharge Date: 01/02/21 Discharge Disposition: Home, Self-Care 01 Condition: Good - Referral to Home Health Primary Care Physician: PCP Not In Area - Discharge Diagnosis/Problem(s) (1) UTI (urinary tract infection) SNOMED Code(s): 47546626 ICD Code: N39.0 - URINARY TRACT INFECTION, SITE NOT SPECIFIED Status: Resolved Priority: High Current Visit: Yes Qualifiers: Urinary tract infection type: acute cystitis Hematuria presence: with hematuria Qualified Code(s): N30.01 - Acute cystitis with hematuria (2) Pyelonephritis of left kidney SNOMED Code(s): 72778505 ICD Code: N12 - TUBULO-INTERSTITIAL NEPHRITIS, NOT SPCF ACUTE OR CHRONIC Status: Resolved Priority: High Current Visit: Yes (3) Constipation SNOMED Code(s): 59330329 ICD Code: K59.00 - CONSTIPATION, UNSPECIFIED Status: Chronic Priority: High Current Visit: Yes Qualifiers: Constipation type: unspecified constipation type Qualified Code(s): K59.00 - Constipation, unspecified (4) Renal stone SNOMED Code(s): 98346576 ICD Code: N20.0 - CALCULUS OF KIDNEY Status: Acute Priority: Medium Current Visit: Yes Problem Details: Nonobstructing, located in mid kidney, incidental finding - Patient Summary/Data Hospital Course: The patient is a 45-year-old lady who had been admitted observation due to failure as an outpatient of antibiotics for urinary tract infection. The patient also had been having significant pain. The patient had presented to the emergency department 2 days prior to admission. She was placed on antibiotics Omnicef and did not improve. Upon admission she was placed in observation status and started on Levaquin 500 mg IV daily. The patient also had rather severe pain and she was medicated with narcotic pain medications, Dilaudid 1 mg IV every 2 hours and her pain was controlled. The patient continued to improve through the short course of hospitalization and she had tolerated the antibiotics. CT scan of her abdomen obtained upon admission showed that she also had severe constipation and she had been treated with MiraLAX as she has used this in the past and this is what has helped her. The CT scan also revealed a incidental finding of a tiny stone in the mid kidney pelvis. Ultrasound obtained prior to discharge also showed the stone in the same position. The patient also had cultures of her urine taken on prior ER prese ntation which had grown out pansensitive E. coli. The patient was discharged on ciprofloxacin 500 mg p.o. twice daily for 3 days. Second urine culture essentially showed no growth. The patient has been recommended to continue with her home medication which consist of Adderall and lorazepam. The patient had been tolerating diet. She also has been recommended continue with activity as tolerated. The patient also has been recommended to follow-up with her primary care physician in [place]. The patient has been hemodynamically stable and she is discharged from acute hospitalization with the recommendations listed above. - Patient Instructions Diet: Usual Diet as Tolerated Activity: As Tolerated - Discharge Plan *PRESCRIPTION DRUG MONITORING PROGRAM REVIEWED*: No *COPY OF PRESCRIPTION DRUG MONITORING REPORT IN PATIENT OLIVE: No Prescriptions/Med Rec: Ciprofloxacin HCl [Cipro] 500 mg PO BID #6 tablet Phenazopyridine [Urinary Pain Relief] 95 mg PO TIDPC PRN #12 tablet PRN Reason: Pain Home Medications: Home Meds Dextroamphetamine/Amphetamine [Adderall 20 mg Tablet] 1 tab PO TID 12/29/20 [History] Fluconazole [Diflucan] 150 mg PO ASDIRECTED #1 tablet 12/29/20 [Rx] LORazepam [Ativan] 0.5 mg PO BID PRN 12/29/20 [History] Ciprofloxacin HCl [Cipro] 500 mg PO BID #6 tablet 01/02/21 [Rx] Phenazopyridine [Urinary Pain Relief] 95 mg PO TIDPC PRN #12 tablet 01/02/21 [Rx] Oxygen Therapy Mode: Room Air Referrals: PCP,Not In Area [Primary Care Provider] - (Please follow-up with your primary care provider in 7-10 days.) - Discharge Summary/Plan Comment DC Time >30 min.: Yes - General Info Date of Service: 01/02/21 Admission Dx/Problem (Free Text: Admission Diagnosis/Problem Admission Diagnosis/Problem UTI (urinary tract infection), uncomplicated, failed outpatient treatment Subjective Update: The patient says that she has been tolerating her diet. She feels better today. She also says that she feels like she can go home. Functional Status: Reports: Pain Controlled, Tolerating Diet - Review of Systems General: Reports: No Symptoms HEENT: Reports: No Symptoms Pulmonary: Reports: No Symptoms Cardiovascular: Reports: No Symptoms Gastrointestinal: Reports: No Symptoms Genitourinary: Reports: No Symptoms Musculoskeletal: Reports: No Symptoms Skin: Reports: No Symptoms Neurological: Reports: No Symptoms Psychiatric: Reports: No Symptoms - Patient Data Vitals - Most Recent: Last Vital Signs Temp 36.8 C 01/02/21 01:22 Pulse 80 01/02/21 01:22 Resp 18 01/02/21 01:22 BP 125/80 01/02/21 01:22 Pulse Ox 91 L 01/02/21 01:22 Weight - Most Recent: 62.641 kg I&O - Last 24 hours: Intake & Output 01/01/21 01/02/21 01/02/21 22:59 06:59 14:59 Intake Total 1760 Output Total 1000 900 Balance 760 -900 Lab Results - Last 24 hrs: Laboratory Results - last 24 hr 01/02/21 01/02/21 Range/Units 05:03 05:03 WBC 4.47 (3.98-10.04) K/mm3 RBC 3.25 L (3.98-5.22) M/mm3 Hgb 10.2 L (11.2-15.7) gm/dl Hct 31.8 L (34.1-44.9) % MCV 97.8 H (79.4-94.8) fl MCH 31.4 (25.6-32.2) pg MCHC 32.1 L (32.2-35.5) g/dl RDW Std Deviation 46.3 (36.4-46.3) fL Plt Count 166 L (182-369) K/mm3 MPV 11.3 (9.4-12.3) fl Neut % (Auto) 51.7 (34.0-71.1) % Lymph % (Auto) 32.9 (19.3-51.7) % Alcorn % (Auto) 10.3 (4.7-12.5) % Eos % (Auto) 4.9 (0.7-5.8) Baso % (Auto) 0.2 (0.1-1.2) % Neut # (Auto) 2.31 (1.56-6.13) K/mm3 Lymph # (Auto) 1.47 (1.18-3.74) K/mm3 Alcorn # (Auto) 0.46 H (0.24-0.36) K/mm3 Eos # (Auto) 0.22 (0.04-0.36) K/mm3 Baso # (Auto) 0.01 (0.01-0.08) K/mm3 Sodium 144 (136-145) mEq/L Potassium 4.0 (3.5-5.1) mEq/L Chloride 110 H (98-107) mEq/L Carbon Dioxide 30 (21-32) mEq/L Anion Gap 8.0 (5-15) BUN 6 L (7-18) mg/dL Creatinine 0.7 (0.55-1.02) mg/dL Est Cr Clr Drug Dosing 94.01 mL/min Estimated GFR (MDRD) > 60 (>60) mL/min BUN/Creatinine Ratio 8.6 L (14-18) Glucose 88 (70-99) mg/dL Calcium 8.0 L (8.5-10.1) mg/dL Magnesium 1.8 (1.8-2.4) mg/dL C-Reactive Protein 1.1 H* (<1.0) mg/dL ROBERTA Results - Last 24 hrs: Microbiology 12/31/20 09:40 Urine Culture - Final Urine Med Orders - Current: Current Medications Acetaminophen (Acetaminophen 325 Mg Tab) 650 mg PO Q4H PRN PRN Reason: Pain (Mild 1-3)/fever Fluconazole (Fluconazole 150 Mg Tab) 150 mg PO ASDIRECTED SHERIF Hydromorphone HCl (Hydromorphone 1 Mg/Ml Syringe) 1 mg IVPUSH Q2H PRN PRN Reason: Pain Last Admin: 01/01/21 17:45 Dose: 1 mg Documented by: Levofloxacin/Dextrose 500 mg/ (Premix) 100 mls @ 100 mls/hr IV Q24H SHERIF Last Admin: 01/01/21 12:02 Dose: 100 mls/hr Documented by: Lorazepam (Lorazepam 1 Mg Tab) 1 mg PO Q6H PRN PRN Reason: Anxiety Non-Formulary Medication (Dextroamphetamine/Amphetamine [Adderall 20 Mg Tablet]) 1 tab PO TID SHERIF Ondansetron HCl (Ondansetron 4 Mg/2 Ml Sdv) 4 mg IV Q6H PRN PRN Reason: Nausea/Vomiting Last Admin: 01/01/21 17:36 Dose: 4 mg Documented by: Oxycodone HCl (Oxycodone 5 Mg Tab) 10 mg PO Q4H PRN PRN Reason: Pain (moderate 4-6) Last Admin: 01/02/21 05:25 Dose: 10 mg Documented by: Phenazopyridine HCl (Phenazopyridine 95 Mg Tab) 95 mg PO TIDPC [facility] Last Admin: 01/01/21 18:23 Dose: 95 mg Documented by: Polyethylene Glycol (Polyethylene Glycol 3350 Powder 17 Gm Packet) 17 gm PO BID PRN PRN Reason: Constipation Last Admin: 01/02/21 05:25 Dose: 17 gm Documented by: Senna/Docusate Sodium (Docusate Sodium/Sennosides 50-8.6 Mg Tab) 1 tab PO BID [facility] Last Admin: 01/01/21 20:31 Dose: 1 tab Documented by: Discontinued Medications Bisacodyl (Bisacodyl 10 Mg Supp) 10 mg RECTAL ONETIME ONE Stop: 12/31/20 16:16 Last Admin: 12/31/20 16:09 Dose: 10 mg Documented by: Hydromorphone HCl (Hydromorphone 0.5 Mg/0.5 Ml Syringe) 0.5 mg IVPUSH ONETIME ONE Stop: 12/31/20 10:55 Last Admin: 12/31/20 10:58 Dose: 0.5 mg Documented by: Hydromorphone HCl (Hydromorphone 0.5 Mg/0.5 Ml Syringe) 0.5 mg IVPUSH ONETIME ONE Stop: 12/31/20 12:30 Last Admin: 12/31/20 12:36 Dose: 0.5 mg Documented by: Hydromorphone HCl (Hydromorphone 0.5 Mg/0.5 Ml Syringe) 0.5 mg IVPUSH Q2H PRN PRN Reason: Pain (severe 7-10) Last Admin: 01/01/21 06:42 Dose: 0.5 mg Documented by: Hydromorphone HCl (Hydromorphone 1 Mg/Ml Syringe) 1 mg IVPUSH ONETIME ONE Stop: 12/31/20 16:16 Last Admin: 12/31/20 16:09 Dose: 1 mg Documented by: Sodium Chloride (Normal Saline) 1,000 mls @ 150 mls/hr IV ASDIRECTED SHERIF Last Admin: 01/01/21 06:39 Dose: 150 mls/hr Documented by: Levofloxacin/Dextrose 500 mg/ (Premix) 100 mls @ 100 mls/hr IV ONETIME ONE Stop: 12/31/20 14:01 Last Admin: 12/31/20 13:17 Dose: 100 mls/hr Documented by: Lorazepam (Lorazepam 0.5 Mg Tab) 0.5 mg PO BID PRN PRN Reason: Anxiety Ondansetron HCl (Ondansetron 4 Mg/2 Ml Sdv) 4 mg IVPUSH ONETIME ONE Stop: 12/31/20 10:26 Last Admin: 12/31/20 10:31 Dose: 4 mg Documented by: - Exam Quality Assessment: Denies: Supplemental Oxygen, DVT Prophylaxis General: Reports: Alert, Oriented, Cooperative, No Acute Distress HEENT: Reports: Pupils Equal, Pupils Reactive, EOMI, Mucous Membr. Moist/[employer] Neck: Reports: Supple, Trachea Midline Lungs: Reports: Clear to Auscultation, Normal Respiratory Effort Cardiovascular: Reports: Regular Rate, Regular Rhythm GI/Abdominal Exam: Normal Bowel Sounds, Soft, Non-Tender, No Distention (Female) Exam: Deferred Rectal (Female) Exam: Deferred Back Exam: Reports: Normal Inspection, Full Range of Motion Extremities: Normal Inspection, Normal Range of Motion, No Pedal Edema Skin: Reports: Warm, Dry, Intact Neurological: Reports: No New Focal Deficit, Normal Gait, Normal Speech Psy/Mental Status: Reports: Alert, Normal Affect, Normal Mood
[2021-01-02] MEDS: Phenazopyridine 95 MG Tab PO SCH ×2 (08:24→14:07)
--- NOTE | 2021-01-02 09:43 | US ---
Renal ultrasound: Multiple real-time images of the kidneys were obtained. Comparison: Prior CT abdomen and pelvis study of 12/31/20. Findings: Kidneys show no hydronephrosis or mass. Resistivity indices within both kidneys are preserved. Finding is seen suspicious for a small stone within the right kidney. No cyst or solid abnormality is appreciated. Right kidney length: 10.5 cm Left kidney length: 12.0 cm Prevoid bladder volume is 344 mL and postvoid bladder volume is 5.1 mL. Bilateral ureteral jets are seen. Minimal debris is noted within the bladder. Impression: 1. Minimal bladder debris raising the possibility of UTI. Please correlate. 2. Possible minimal calcification within the right kidney. 3. No additional abnormality is appreciated on renal ultrasound exam. Diagnostic code #3
[2021-01-02] MEDS: Levofloxacin/Dextrose 5%-Water 500 MG in Premix Bag 1 BAG IV SCH (14:07)
== END 2021-01-02 13:06 | disposition home or self-care (01) ==
LOC: JD.ED 09:25 → JD.MS 13:46
PROVIDERS: ADMIT Internal Medicine; ATTEND Internal Medicine
DX: N39.0 Urinary tract infection, site not specified (principal); N20.0 Calculus of kidney; K59.00 Constipation, unspecified; Z88.1 Allergy status to other antibiotic agents; Z79.899 Other long term (current) drug therapy; Z90.49 Acquired absence of other specified parts of digestive tract; Z98.890 Other specified postprocedural states; Z20.822 Contact with and (suspected) exposure to COVID-19
CPT/HCPCS: 36415; 74176; 76770; 80048; 80053; 81001; 83690; 83735; 85007; 85025; 85027; 86140; 87086; 87635; 96365; 96366; 96375; 96376; 99285; A9270; G0378; J1170; J1956; J2405; J7030; 99217; 99219; 99226; 99284; U0002